=== PATIENT | male | born 2000 | race Two or more races ===

== ENCOUNTER 2022-02-19 14:21 | Emergency (ER) | payer MEDICAID ==
[2022-02-19] MEDS ORDERED: cefTRIAXone\\ROCEPHIN 500 MG VIAL ONE (15:11)
[2022-02-19] MEDS ORDERED: Lidocaine 1% MPF 2 ML VIAL ONE (15:12)
[2022-02-20 15:49] LABS: Chlam.trachomatis by PCR,Urine Not Detected (NotDetected)
== END 2022-02-19 15:38 | disposition home or self-care (01) ==
LOC: ERS 14:21
DX: R36.9 Urethral discharge, unspecified (principal)
CPT/HCPCS: 87491; 87591; 96372; 99283; J0696

== ENCOUNTER 2023-03-31 18:16 | Emergency (ER) | payer MEDICAID ==
[2023-03-31] MEDS ORDERED: Dexamethasone 10 MG/ML VIAL ONE (18:36)
== END 2023-03-31 19:57 | disposition home or self-care (01) ==
LOC: ERS 18:16
DX: J02.0 Streptococcal pharyngitis (principal)
CPT/HCPCS: 87081; 87430; 99283; J1100